=== PATIENT | male | born 1965 | race Caucasian/White ===

== ENCOUNTER → 2020-08-29 11:19 | Outpatient (CLI) | payer OTHER, SELFPAY ==
--- NOTE | ~2020-08-29 | XR_ITS ---
XR chest 2V DATE: 08/29/2020 11:45 INDICATION: Chest pain TECHNIQUE: 2 views COMPARISON: 03/03/2014 2 view chest FINDINGS: Normal heart size. No hilar or mediastinal enlargement. No pulmonary infiltrate or consolid ation, pleural effusion or pulmonary vascular congestion or pneumothorax. IMPRESSION: No active cardiopulmonary disease Reviewed, dictated and finalized at location B. 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
== END ==
PROVIDERS: PCP Family Medicine; Visit Provider Physician Assistant
DX: R07.9 Chest pain, unspecified (principal)
CPT/HCPCS: 71046

== ENCOUNTER → 2021-02-19 08:58 | Outpatient (CLI) | payer OTHER, SELFPAY ==
--- NOTE | ~2021-02-19 | XR_ITS ---
EXAMINATION: XR knee LT 3V DATE: 02/19/2021 09:19 INDICATION: Left knee pain TECHNIQUE: Three views of the left knee were obtained. COMPARISON: None. FINDINGS: Alignment is normal. No fracture or osteochondral lesion. There is advanced osteoarthritis of the medial and patellofemoral compartments and moderate osteoarthritis of the lateral compartment. Chondrocalcinosis is noted. A small knee joint effusion is present. There is calcified atheroscleros is. IMPRESSION: 1. Moderate to severe tricompartmental osteoarthritis. 2. Small joint effusion. Reviewed, dictated and finalized at location B.
== END ==
PROVIDERS: PCP Physician Assistant; Visit Provider Physician Assistant
DX: M25.462 Effusion, left knee (principal)
CPT/HCPCS: 73562

== ENCOUNTER → 2021-08-12 14:11 | Outpatient (CLI) | payer OTHER, SELFPAY ==
--- NOTE | ~2021-08-12 | XR_ITS ---
XR chest 2V DATE: 08/12/2021 14:20 INDICATION: Covid infection, pneumonia TECHNIQUE: 2 views COMPARISON: 08/29/2020 2 view chest FINDINGS: Normal heart size. No hilar or mediastinal enlargement. No pulmonary infiltrate or consolid ation, pleural effusion or pulmonary vascular congestion or pneumothorax. Surgical clips overlie left axillary area. IMPRESSION: No active cardiopulmonary disease Reviewed, dictated and finalized at location B. 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
== END ==
PROVIDERS: PCP Physician Assistant; Visit Provider Physician Assistant
DX: U07.1 COVID-19 (principal); J12.82 Pneumonia due to coronavirus disease 2019
CPT/HCPCS: 71046

== ENCOUNTER 2023-08-13 14:48 | Emergency (ER) | payer OTHER, SELFPAY ==
[2023-08-13] VITALS (8 sets, daily range): BP systolic 132–156; BP diastolic 73–87; PULSE 68–78; RESP 16–29; TEMP 36.7; O2SAT 97–100
--- NOTE | ~2023-08-13 | XR_ITS ---
XR hand RT min 3V DATE: 08/13/2023 15:26 INDICATION: Laceration of first and second digits from table saw injury TECHNIQUE: 4 views COMPARISON: None FINDINGS: Mild osteoarthritis is noted at the first carpometacarpal joint. There is severe deformity of the mid to distal second digit, with fracture through the distal shaft, neck and head and severely comminuted fracture deformity of the middle phalanx, partial amputation of the mid digit. Soft tissue laceration of the first digit but the phalanges of the first digit appear intact. There is suggestion of a soft tissue laceration of the distal lateral aspect of the third digit with probable fracture deformity of the lateral aspect of the tuft of the distal phalanx of the third digi t. IMPRESSION: Fractures of proximal middle phalanges of second digit with partial amputation of this di git Soft tissue laceration and probable lateral tuft fracture of distal phalanx of third digit Soft tissue laceration of first digit Reviewed, dictated and finalized at location A. 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
[2023-08-13] MEDS: HYDROmorphone HCL INJ (*CRX) 1 MG/ML SYR 0.5 MG IV PUSH ×2 (15:11→15:31)
[2023-08-13] MEDS: ONDANSETRON INJ 4 MG/2 ML VIAL IV PUSH (15:12)
[2023-08-13] MEDS: ceFAZolin 2 GM/D5W 50 ML 2 GM/50 ML BAG IVPB (15:27)
--- NOTE | 2023-08-13 15:35 | ED.WOUNDLAC ---
HPI - Wound/Laceration General Chief Complaint: Wound/Laceration Stated Complaint: finger lac Time Seen by Provider: 08/13/23 15:06 Source: patient and family Limitations: no limitations History of Present Illness HPI narrative: table saw injury right index and right middle finger prior to arrival. Unknown last tetanus shot. Denies other injuries. Related Data Allergies Allergy/AdvReac Type Severity Reaction Status Date / Time No Known Allergies Allergy Unverified 07/11/18 09:49 Review of Systems Review of Systems: All systems reviewed & are unremarkable except as noted in HPI and below Exam Narrative: General appearance: Well-developed, well-nourished Skin: Normal color Head: Normocephalic, nontraumatic Neck: Supple, nontender Chest and respiratory: Airway patent, no respiratory distress, no accessory muscle use Heart: Regular rate/rhythm Musculoskeletal: Right index, partial amputation at the PIP, 4 cm laceration, lacerated tendon and muscle, patient unable to flex or extend the right index at the PIP level, 2 cm laceration at the tip of the middle finger Neurologic: Alert and oriented ?3, [employer] WORKER is normal as tested, no gross motor deficit MDM - Wound/Laceration MDM Narrative Medical decision making narrative: right index partial amputation, no hand surgeon/ plastic surgeon available in our facility today Patient requested to be transferred to [facility] for Differential Diagnosis Differential diagnosis: Likely other ( open fracture right index, laceration middle finger) Imaging Data Radiologist's impression: Impressions Hand X-Ray 08/13/23 15:27 IMPRESSION: Fractures of proximal middle phalanges of second digit with partial amputation of this digit Soft tissue laceration and probable lateral tuft fracture of distal phalanx of third digit Soft tissue laceration of first digit Critical Care Time Critical Care Time Critical Care Time: No Discharge Plan Discharge Clinical Impression: Open displaced fracture of phalanx of right index finger Patient Disposition: Acute Care Hospital Condition: Stable Additional Instructions: transfer to [facility] Follow-up/Referrals: Saba,Keyla Velazquez PA-C [Primary Care Provider] -
[2023-08-13] MEDS: TETANUS,DIPHTHERIA,AC PERTUSSIS ADULT (0.5 ML) BOOSTRIX IM (15:56)
== END 2023-08-13 17:21 | disposition short-term general hospital (02) ==
PROVIDERS: Emergency Provider Emergency Medicine; PCP Physician Assistant
DX: S62.610B Displaced fracture of proximal phalanx of right index finger, initial encounter for open fracture (principal); Z23 Encounter for immunization; W31.2XXA Contact with powered woodworking and forming machines, initial encounter
CPT/HCPCS: 73130; 90471; 90715; 96365; 96375; 96376; 99285; J0690; J1170; J2405

== ENCOUNTER 2024-07-29 08:38 | Emergency (ER) | payer OTHER, SELFPAY ==
[2024-07-29 08:45] VITALS: BP 171/86; PULSE 67; RESP 20; TEMP 36.3; O2SAT 100
--- NOTE | 2024-07-29 09:18 | ED.EYEPROB ---
HPI - Eye Problem General Chief complaint: Eye Problems Stated complaint: Left Eye Irritation Time Seen by Provider: 07/29/24 09:19 Source: patient, RN notes reviewed and old records reviewed Mode of arrival: ambulatory Limitations: no limitations History of Present Illness HPI Narrative: Patient presents with complaints of pain and swelling to left upper eyelid for 2-3 days. He denies any injury or trauma. Denies visual disturbance. Patient does not wear contact lenses. He denies any fever, chills, sweats. He reports that swelling has gotten worse over the past 24 hours. He denies any drainage. He has been flushing the affected eye, otherwise not taking anything for symptoms. Related Data Home Medications Medication Instructions Recorded Confirmed atorvastatin 10 mg tablet mg 07/29/24 insulin glargine U-300 conc 300 unit subcut 07/29/24 unit/mL (1.5 mL) subcutaneous pen (Toujeo SoloStar U-300 Insulin) lisinopril 20 mg tablet mg 07/29/24 metformin 500 mg tablet,extended mg PO 07/29/24 release 24 hr pen needle, diabetic 32 gauge x 07/29/24 07/29/2432 (BD Kaity 2nd Gen Pen Needle) semaglutide 1 mg/dose (4 mg/3 mL) mg subcut 07/29/24 subcutaneous pen injector (Ozempic) Allergies Allergy/AdvReac Type Severity Reaction Status Date / Time No Known Allergies Allergy Unverified 07/11/18 09:49 Review of Systems Review of Systems: All systems reviewed & are unremarkable except as noted in HPI and below Constitutional: Constitutional: Reports no additional constitutional complaints Eyes: Eyes: Reports as per HPI and Denies requires corrective lenses ENT: Reports system reviewed and no additional complaints, except as documented Cardiovascular: Cardiovascular: Reports no additional cardiovascular complaints Respiratory: Respiratory: Reports no additional respiratory complaints Gastrointestinal: Gastrointestinal: Reports no additional gastrointestinal complaints PMFSH Comments At the time of my signature, I reviewed and agree with the nursing past medical, surgical, social, and family history. There is no relevant family history pertinent to the patient complaint. Exam Const: General: cooperative, no acute distress, alert and awake Orientation/consciousness: oriented to person, oriented to place and oriented to time HENMT: Head: normal to inspection Eyes: Eyes/upper lids images: 1. small pustule. There is associated erythema and swelling to the entire upper eyelid Resp: Effort & Inspection: normal respiratory effort and able to speak in complete sentences Auscultation: clear to auscultation bilaterally, no crackles, no rales, no rhonchi and no wheezes Cardio: Palpation: normal PMI Rate: regular rate Rhythm: regular rhythm Heart sounds: S1 normal heart sound present and S2 normal heart sound present Neuro: General: oriented to person, oriented to place and oriented to time Cranial nerves: Yes CN's II-XII intact bilaterally Psych: Appearance: grossly normal Thought process: Normal thought process present Insight: Good insight present (Psych) Judgement: Good judgement present (Psych) Course Course Level of Care: Express Care Visit Vital Signs Vital signs: Vital Signs Temperature 97.4 F L 07/29/24 08:45 Pulse Rate 67 07/29/24 08:45 Respiratory Rate 20 07/29/24 08:45 Blood Pressure 171/86 H 07/29/24 08:45 Pulse Oximetry 100 07/29/24 08:45 Oxygen Delivery Room Air 07/29/24 08:45 Temperature 97.4 F L 07/29/24 08:45 Pulse Rate 67 07/29/24 08:45 Respiratory Rate 20 07/29/24 08:45 Blood Pressure 171/86 H 07/29/24 08:45 Pulse Oximetry 100 07/29/24 08:45 Oxygen Delivery Room Air 07/29/24 08:45 Reviewed MDM - Eye Problem MDM Narrative Medical decision making narrative: History and exam consistent with get lays on. Patient nontoxic appearing, stable for discharge home on p.o. antibiotics. Discharge instructions reviewed with patient, as well as provided in writing per nursing staff. The instructions also include specific and strict return/GO TO THE ER as well as f/u information. All questions have been answered, and the patient deny any further questions with discharge and discharge plan. Some parts of this dictation were generated by voice recognition software and may contain typographical and/or grammatical inaccuracies. Differential Diagnosis Differential diagnosis: Likely conjunctivitis and periorbital cellulitis Medical Records Attestation: I reviewed the patient's medical records. Discharge Plan Discharge Clinical Impression: Elevated blood pressure reading Chalazion Qualifiers: Laterality: left Eyelid: upper Qualified Code(s): H00.14 - Chalazion left upper eyelid Patient Disposition: Home, Self-Care Condition: Stable Instructions: Antibiotic Form, Chalazion (ED) Additional Instructions: Apply warm compresses to affected eye 3-4 times daily to encourage drainage. Take medications as prescribed. Follow with primary care provider. Emergency department for new or worse symptoms. Please discuss your blood pressure with your primary care provider, it is very elevated today Patient Language: Georgian Prescriptions: New doxycycline hyclate 100 mg capsule 100 mg PO BID Qty: 20 0RF No Action atorvastatin 10 mg tablet lisinopril 20 mg tablet metformin 500 mg tablet extended release 24 hr PO (DME) pen needle, diabetic [BD Kaity 2nd Gen Pen Needle] 32 gauge x 5/32 needle MISCELLANEOUS insulin glargine U-300 conc [Toujeo SoloStar U-300 Insulin] 300 unit/mL (1.5 mL) insulin pen SUBCUT Ozempic 1 mg/dose (4 mg/3 mL) pen injector SUBCUT Follow-up/Referrals: Saba,Keyla Velazquez PA-C [Primary Care Provider] - 1 Week Time of Disposition: 09:30
== END 2024-07-29 09:38 | disposition home or self-care (01) ==
PROVIDERS: Emergency Provider Nurse Practitioner Family; PCP Physician Assistant
DX: I10 Essential (primary) hypertension (principal); H00.14 Chalazion left upper eyelid
CPT/HCPCS: 99213; G0463